=== PATIENT | male | born 1980 | race African-American/Black ===

== ENCOUNTER 2020-07-22 12:58 | Emergency (ER) | payer BC, OTHER ==
[~2020-07-22] VITALS: Ht 172.7 cm; Wt 58.1 kg
[2020-07-22] MEDS ORDERED: traMADol HCL 50 MG TAB PO ONE (14:15)
[2020-07-22 15:23] VITALS: BP 131/89
== END 2020-07-22 16:14 | disposition home or self-care (01) ==
LOC: ER 12:58
DX: R10.32 Left lower quadrant pain (principal); Y99.0 Civilian activity done for income or pay
CPT/HCPCS: 74176; 81002

== ENCOUNTER 2020-07-25 14:22 | Emergency (ER) | payer OTHER ==
[~2020-07-25] VITALS: Ht 172.7 cm; Wt 58.1 kg
[2020-07-25 15:13] VITALS: BP 112/89
[2020-07-25] MEDS ORDERED: KETOROLAC TROMETH 60MG/2ML VIAL IM ONE (15:45)
== END 2020-07-25 17:19 | disposition home or self-care (01) ==
LOC: ER 14:22
DX: K40.90 Unilateral inguinal hernia, without obstruction or gangrene, not specified as recurrent (principal); X58.XXXA Exposure to other specified factors, initial encounter; Y93.89 Activity, other specified; Y92.69 Other specified industrial and construction area as the place of occurrence of the external cause; Y99.8 Other external cause status
CPT/HCPCS: 81002; 93926; 96372; 99284; J1885

== ENCOUNTER 2020-07-28 19:46 | Emergency (ER) | payer OTHER ==
[~2020-07-28] VITALS: Ht 170.2 cm; Wt 59.4 kg
[2020-07-28 19:50] VITALS: BP 103/63
== END 2020-07-28 23:30 | disposition left against medical advice (07) ==
LOC: ER 19:46
DX: R10.9 Unspecified abdominal pain (principal); Z53.21 Procedure and treatment not carried out due to patient leaving prior to being seen by health care provider